=== PATIENT | female | born 1970 | race Caucasian/White ===

== ENCOUNTER 2019-01-18 13:23 | Emergency (ER) | payer OTHER ==
[~2019-01-18] VITALS: Ht 160 cm; Wt 59.0 kg
== END 2019-01-18 15:08 | disposition home or self-care (01) ==
LOC: ER 13:23
DX: S92.352A Displaced fracture of fifth metatarsal bone, left foot, initial encounter for closed fracture (principal); W18.39XA Other fall on same level, initial encounter; Y93.89 Activity, other specified; Y92.89 Other specified places as the place of occurrence of the external cause; Y99.8 Other external cause status

== ENCOUNTER 2019-03-03 22:19 | Emergency (ER) | payer OTHER ==
[~2019-03-03] VITALS: Ht 157.5 cm; Wt 59.0 kg
[2019-03-04] MEDS ORDERED: LEVSIN/SL0.125 MG SL (01:30)
== END 2019-03-04 01:36 | disposition home or self-care (01) ==
LOC: ER 22:19
DX: R10.32 Left lower quadrant pain (principal)